=== PATIENT | male | born 1955 | race Caucasian/White ===

== ENCOUNTER → 2017-10-07 | Outpatient (CLI) | payer OTHER ==
--- NOTE | 2017-10-07 20:48 | CT ---
EXAMINATION TYPE: CT abdomen pelvis w con DATE OF EXAM: 10/07/2017 COMPARISON: HISTORY: Elevated alkaline phosphate. CT DLP: 703.9 mGycm, Automated Exposure Control for Dose Reduction was Utilized. CONTRAST: CT scan of the abdomen and pelvis is performed with oral and with IV Contrast, patient injected with 100ml mL of Isovue 300. FINDINGS: LUNG BASES: Some patchy bibasilar linear scarring and/or atelectasis is present. LIVER/GB: Gallbladder is felt within normal limits. PANCREAS: No significant abnormality is seen. SPLEEN: No significant abnormality is seen. ADRENALS: No significant abnormality is seen. KIDNEYS: Central simple appearing parapelvic cysts left kidney are identified. Bladder wall is mildly concentrically thickened. Finding likely an basis of outlet obstruction related to enlarged prostate gland. BOWEL: Small hiatal hernia is seen. No oral contrast does not reach the level of the terminal ileum. There is wandering cecum into the anterior mid abdomen just right of midline axial image 31. There is no suspicious small or large bowel dilatation. PROSTATE/SEMINAL VESICLES: Heterogeneous enlarged prostate gland bulging of bladder base consistent w ith underlying BPH is present. LYMPH NODES: No greater than 1cm abdominal or pelvic lymph nodes are appreciated. OSSEOUS STRUCTURES: There is moderate to severe multilevel spurring of the thoracolumbar spine. Multi level disc desiccation and vacuum disc phenomenon is present. There is slight grade 1 anterolisthesis of L4 and L5. There is multilevel facet arthropathy lower lumbar spine. OTHER: There is mild/moderate calcified plaque of the aorta extending into branch vessels. IMPRESSION: Gallbladder felt unremarkable. No worrisome intra-abdominal or intrapelvic mass or adenop athy identified.
== END | disposition home or self-care (01) ==
LOC: RADCTMAIN 16:43
PROVIDERS: ATTEND Family Medicine
DX: R74.8 Abnormal levels of other serum enzymes (principal)
CPT/HCPCS: 74177; Q9967